=== PATIENT | male | born 1965 | race Hispanic/Latino ===

== ENCOUNTER 2022-04-03 10:43 | Emergency (ER) | payer OTHER ==
[~2022-04-03] VITALS: Ht 167.6 cm; Wt 113.6 kg
[2022-04-03 10:55] VITALS: BP 136/82
[2022-04-03 11:00] VITALS: BP 128/82
[2022-04-03 11:15] VITALS: BP 118/81
[2022-04-03] MEDS ORDERED: DIPHENHYDRAM50 M2 PO (12:08)
[2022-04-03] MEDS ORDERED: MEDDOSEPAK PO (12:08)
[2022-04-03 12:16] VITALS: BP 118/81
== END 2022-04-03 12:22 | disposition home or self-care (01) | DRG 607 ==
LOC: EDBD 10:43 → ED 10:43
DX: L23.7 Allergic contact dermatitis due to plants, except food (principal); Y99.0 Civilian activity done for income or pay